=== PATIENT | male | born 1965 | race Caucasian/White ===

== ENCOUNTER 2020-05-19 10:46 | Outpatient (CLI) | payer OTHER, SELFPAY | END 2020-05-19 10:47 | disposition home or self-care (01) | LOC: ANHCOVIDVC 10:46 | PROVIDERS: PCP Family Medicine | DX: Z23 Encounter for immunization (principal) | CPT/HCPCS: 0001A; 91300 ==

== ENCOUNTER 2020-06-09 10:43 | Outpatient (CLI) | payer OTHER, SELFPAY | END 2020-06-09 10:44 | disposition home or self-care (01) | LOC: ANHCOVIDVC 10:43 | PROVIDERS: PCP Family Medicine | DX: Z23 Encounter for immunization (principal) | CPT/HCPCS: 0002A; 91300 ==

== ENCOUNTER 2021-11-16 17:09 | Emergency (ER) | payer OTHER, SELFPAY ==
--- NOTE | ~2021-11-16 | CT_ITS ---
EXAMINATION: CTA BRAIN/CAROTID DATE: 11/16/2021 20:35 INDICATION: Ocular migraines. Diplopia. TECHNIQUE: Computed tomographic angiography (CTA) of the head and neck was performed with 100 mL Omni paque-350 intravenous contrast. Multiplanar reconstructions and maximum intensity projection 3D-recon structions of the carotid arteries and of the intracranial arteries were created by the technologist on a separate workstation. Precontrast CT of the head was also obtained. Automated exposure control and iterative reconstruction technique were employed.The dose-length product was 1937.77 mGy-cm. COMPARISON: None. FINDINGS: Carotid arteries: Small amount of nonhemodynamically significant atherosclerotic calcific calcifications along the norm al caliber aortic arch and along portions of the great vessels arising from the arch. There is athero sclerotic plaque at the bilateral carotid bulbs was 0% stenosis of both the left and right carotid bu lbs relative to normal distal artery lumen diameter (NASCET criteria). Cervical soft tissues are unre markable. Visualized airway and upper lung zones are clear. Moderate cervical spondylosis. Head: No acute intracranial hemorrhage, acute infarction or abnormal extra axial fluid collection. Ventricl es are normal and symmetric. No mass/mass effect. The orbits, paranasal sinuses and mastoid air cells are normal. No abnormally enhancing brain lesions. Intracranial arteries Small amount of nonhemodynamically significant atherosclerotic plaque at the bilateral carotid siphon s. There is no hemodynamically significant stenosis in the vertebral, basilar and internal carotid ar teries. Left vertebral artery is mildly dominant. There are no aneurysms identified. Both A1 and P1 segments are patent. Patent anterior communicating artery. Cerebral arterial arborization appears sym metric. IMPRESSION: 1. No acute intracranial process. 2. Small amount of atherosclerotic plaque with 0% stenosis of the right and left carotid bulbs relati ve to normal distal artery lumen diameter (NASCET criteria). 3. No significant cerebral arterial stenosis, aneurysm or dissection. Reviewed, dictated and finalized at location A. IMPRESSION: 1. No acute intracranial process. 2. Small amount of atherosclerotic plaque with 0% stenosis of the right and lef t carotid bulbs relative to normal distal artery lumen diameter (NASCET criteri a). 3. No significant cerebral arterial stenosis, aneurysm or dissection.
--- NOTE | ~2021-11-16 | XR_ITS ---
EXAMINATION: XR chest 2V DATE: 11/16/2021 20:45 INDICATION: Diplopia. Prior myocardial infarction. TECHNIQUE: PA and lateral views of the chest were obtained. COMPARISON: Chest radiograph dated 12/11/2018 FINDINGS: The lungs remain clear with no focal airspace opacities, pulmonary edema, pleural effusion or pneumot horax. The cardiomediastinal silhouette is normal. Dual lead pacemaker/AICD seen with leads projectin g over the expected locations of the right atrium and right ventricle. Coronary artery stent. Mild th oracic kyphosis. Chronic mild anterior wedging of a couple vertebral bodies at the thoracolumbar junc tion likely T12 and L1. IMPRESSION: 1. No acute cardiopulmonary disease. Reviewed, dictated and finalized at location A.
[2021-11-16 17:59] VITALS: BP 134/74; PULSE 87; RESP 16; TEMP 36.6; O2SAT 99
--- NOTE | 2021-11-16 19:34 | ECG_ITS ---
Measurements Intervals Brick Rate: 69 P: 50 CT: 166 QRS: 4 QRSD: 96 T: 43 QT: 369 QTc: 396 Interpretive Statements SINUS RHYTHM CANNOT RULE OUT SEPTAL INFARCT, AGE INDETERMINATE BORDERLINE T WAVE ABNORMALITY- ANTEROLAT/HIGH LAT LEADS BASELINE ARTIFACT- I, II, AVR ABNORMAL ECG NO PREVIOUS ECG AVAILABLE FOR COMPARISON Electronically Signed On 11-16-2021 21:14:50 CDT by Malcom Galvez D.O.
[2021-11-16 20:02] LABS: Basophils Absolute Auto 0.1 K/mm3 (0.0-0.1); Basophils Percent Auto 1.1 % (0.2-1.2); Eosinophils Absolute Auto 0.1 K/mm3 (0-0.3); Eosinophils Percent Auto 1.5 % (0-4.4); Hematocrit 42.6 % (42.0-52.0); Immature Granulocyte Absolute 0.02 K/mm3 (0.00-0.031); Immature Granulocyte Percent A 0.3 % (0-0.5); Lymphocytes Absolute Auto 2.81 K/mm3 (0.9-3.2); Lymphocytes Percent Auto 39.1 % (18.3-44.2); Mean Corpuscular HGB Conc 32.9 g/dl (32-36); Mean Corpuscular Volume 91.2 fl (80-100); Monocytes Absolute Auto 0.7 K/mm3 (0.1-0.6); Monocytes Percent Auto 9.9 % (2.6-8.5); Neutrophils Absolute Auto 3.5 K/mm3 (1.3-6.7); Neutrophils Percent Auto 48.1 % (45.5-73.1); Platelet Count Result 233 k/mm3 (150-375); Red Blood Count 4.67 M/mm3 (4.6-6.20); Red Cell Distribution Width 13.2 % (11.5-14.5); White Blood Count 7.2 K/mm3 (4.5-10.0)
[2021-11-16 20:13] LABS: Alanine Aminotransferase 36 U/L (6-50); Albumin Level 4.7 g/dL (3.5-5.1); Alkaline Phosphatase 84 U/L (38-126); Anion Gap 12 mmol/L (8-16); Aspartate Amino Transferase 33 U/L (17-59); Bilirubin,Total 0.3 mg/dL (0.2-1.3); Blood Urea Nitrogen 11 mg/dL (9-20); Calcium 8.9 mg/dL (8.4-10.2); Carbon Dioxide 28 mmol/L (22-30); Chloride 98 mmol/L (98-107); Estimated CRCL calculation 81 ml/min; Estimated Glomerular Filt Rate > 60; Glucose 97 mg/dL (65-110); Potassium 4.4 mmol/L (3.4-5.0); Sodium 138 mmol/L (137-145)
[2021-11-16 20:14] LABS: INR 1.1; Partial Thromboplastin Time 23.8 SECONDS (22.3-36.8); Prothrombin Time 13.4 Seconds (11.1-14.7)
[2021-11-16 20:20] VITALS: BP 130/76; PULSE 84; RESP 16; O2SAT 100
[2021-11-16 20:25] LABS: Troponin I < 0.012 ng/mL (0.000-0.034)
--- NOTE | 2021-11-16 20:53 | ED.GENADULT ---
HPI - General Adult General Chief complaint: Headache Stated complaint: ocular migraines Time Seen by Provider: 11/16/21 19:05 History of Present Illness HPI narrative: Patient is a 56-year-old male who presents ER with reports diplopia. Patient reports symptoms began around 3:30 in the afternoon. He come out of meeting and experience double vision. He looked at an individual next to him and asked if his eyes were crossed and they said no. He then sat down. Symptoms lasted about a minute. He had no facial droop. No weakness of an arm or leg. No dizziness. Patient has had very slight headache since then. Patient reports she has history of ocular migraines and has not been seen by neurologist. He reports about 2 times a year he will get a visual aura and then have a very slight headache with decreased energy. He did not have the same aura today but has a similar feeling of decreased energy. Reports over the last 2 weeks he has had over 5 episodes of his visual aura which is atypical and led him to contact his heart doctor and his PCP. After his symptoms today he contacted his PCP and they are going to see him on 11/21/2021 but he felt he should probably come in to get evaluated further. Patient takes Plavix related to a cardiac stent. Patient reports recent increased work stress. Patient reports he wakes up every 90 minutes when sleeping but that is been an ongoing issue over the last decade. Related Data Home Medications Medication Instructions Recorded Confirmed atorvastatin 80 mg tablet 80 mg PO DAILY 03/05/19 09/18/19 carvedilol 6.25 mg tablet 6.25 mg PO BID 03/05/19 09/18/19 sacubitril 49 mg-valsartan 51 mg 1 tablet PO BID 03/05/19 09/18/19 tablet (Entresto) empagliflozin 10 mg tablet mg 11/16/21 (Jardiance) Allergies Allergy/AdvReac Type Severity Reaction Status Date / Time No Known Allergies Allergy Verified 11/16/21 17:59 Review of Systems Review of Systems: All systems reviewed & are unremarkable except as noted in HPI and below Constitutional: Constitutional: Denies chills, Denies fatigue and Denies fever(s) Eyes: Eyes: Denies photophobia Comments: Double vision, no flashers or floaters. ENT: Denies vertigo and Denies dizziness Cardiovascular: Cardiovascular: Denies chest pain and Denies radiating jaw, neck or arm pain Respiratory: Respiratory: Denies cough and Denies dyspnea Neurologic: Denies syncope, Reports headache(s), Denies focal weakness, Denies numbness and Denies weakness PMFSH Past Medical History Medical History (Updated 11/16/21 @ 22:51 by Eduardo Chino MD) Congestive heart failure Coronary artery disease Hyperlipidemia Hypertension Surgical History Surgical History (Updated 11/16/21 @ 22:50 by Eduardo Chino MD) History of percutaneous coronary intervention Presence of combination internal cardiac defibrillator (ICD) and pacemaker Family History Family History Mother Family history of pancreatic cancer Social History Social History Smoking status: Never smoker Alcohol intake: current Substance use: never Substance use type: does not use Gender identity (if verbalized by the patient): Male Exam Narrative: GENERAL: Well-appearing, well-nourished, and in no acute distress. HEAD: Normocephalic, atraumatic. EYES: PERRL and EOMI. CHEST: Clear to auscultation. No respiratory distress. HEART: Regular rate and rhythm. Normal peripheral pulses. EXTREMITIES: Normal range of motion. No edema. SKIN: Warm, dry, no rash. NEURO: No focal deficits. Normal wvot-ep-prud and finger-nose testing. No upper or lower extremity drift. Cranial nerves II through XII intact. Alert and oriented x3. PSYCH: Normal mood and affect. Course Course Emergency Course: Symptoms felt to be related to patient's migraines as opposed to CVA. We wi
[2021-11-16 21:35] VITALS: BP 128/70; PULSE 89; RESP 16; O2SAT 100
[2021-11-16 22:41] VITALS: BP 126/74; PULSE 80; RESP 16; O2SAT 100
== END 2021-11-16 22:51 | disposition home or self-care (01) ==
PROVIDERS: Emergency Provider Emergency Medicine; PCP Family Medicine
DX: G43.909 Migraine, unspecified, not intractable, without status migrainosus (principal); H53.2 Diplopia; I50.9 Heart failure, unspecified; I11.0 Hypertensive heart disease with heart failure; I25.10 Atherosclerotic heart disease of native coronary artery without angina pectoris; E78.5 Hyperlipidemia, unspecified; Z95.810 Presence of automatic (implantable) cardiac defibrillator; R94.31 Abnormal electrocardiogram [ECG] [EKG]
CPT/HCPCS: 36415; 70496; 70498; 71046; 80053; 84484; 85025; 85610; 85730; 93005; 99284; Q9967